=== PATIENT | male | born 1990 | race Caucasian/White ===

== ENCOUNTER 2017-09-04 10:12 | Emergency (ER) | payer BC ==
--- NOTE | 2017-09-04 10:42 | EDM.PDOC ---
ED HPI GENERAL MEDICAL PROBLEM - General Chief Complaint: Lower Extremity Injury/Pain Stated Complaint: LEG RED AND SWOLLEN Time Seen by Provider: 09/04/17 10:25 Source of Information: Reports: Patient History Limitations: Reports: No Limitations - History of Present Illness INITIAL COMMENTS - FREE TEXT/NARRATIVE: The patient presents with a right leg infection. He was swimming at [facility] last week and got an abrasion to the right calf. He has some erythema around the wound that has a scab. He has some pain around it. He has no drainage at this time. He was using hydrogen peroxide and bacitracin to clean it. He denies fever or chills. His tetanus is up to date. Onset: Sudden Duration: Week(s): Location: Reports: Lower Extremity, Right Quality: Reports: Sharp Severity: Moderate Improves with: Reports: None Worsens with: Reports: None Context: Reports: Activity (He was swimming in [facility] when this happened ) Right Lower Leg Pain Score (Numeric/FACES): 2 - Related Data Home Meds: Home Meds Multivitamin [Multivitamins] 1 cap PO DAILY 09/04/17 [History] Sulfamethoxazole/Trimethoprim [Bactrim Ds Tablet] 1 each PO BID #20 tablet 09/04 [Rx] Review of Systems - Review of Systems Review Of Systems: See Below Constitutional: Reports: No Symptoms Eyes: Reports: No Symptoms Ears: Reports: No Symptoms Nose: Reports: No Symptoms Mouth/Throat: Reports: No Symptoms Respiratory: Reports: No Symptoms Cardiovascular: Reports: No Symptoms GI/Abdominal: Reports: No Symptoms Musculoskeletal: Reports: Other (Abrasion and erythema) ED EXAM, GENERAL - Physical Exam Exam: See Below Exam Limited By: No Limitations General Appearance: Alert, No Apparent Distress Ears: Normal External Exam Nose: Normal Inspection Head: Atraumatic Respiratory/Chest: No Respiratory Distress Extremities: Other (area to the right calf with a scab and erythema around it with pain upon palpation. No discharge noted.) Course - Vital Signs Last Recorded V/S: Last Vital Signs Temp 98.7 F 09/04/17 10:24 Pulse 76 09/04/17 10:24 Resp 16 09/04/17 10:24 BP 139/82 09/04/17 10:24 Pulse Ox 98 09/04/17 10:24 Departure - Departure Time of Disposition: 10:45 Disposition: Home, Self-Care 01 Condition: Good Clinical Impression: Abrasion of right calf Qualifiers: Encounter type: initial encounter Qualified Code(s): S80.811A - Abrasion, right lower leg, initial encounter Cellulitis Qualifiers: Site of cellulitis: extremity Site of cellulitis of extremity: lower extremity Laterality: right Qualified Code(s): L03.115 - Cellulitis of right lower limb - Discharge Information Prescriptions: Sulfamethoxazole/Trimethoprim [Bactrim Ds Tablet] 1 each PO BID #20 tablet Referrals: PCP,None [Primary Care Provider] - Anayeli Forrester [Physician] - 1 Week Additional Instructions: Take the bactrim 2 times per day for 10 days. Wash the wound with warm soapy water 2 times per day until better. You may also put some neosporin on after. Please return if you are worse or follow up with Dr Forrester in our clinic.
== END 2017-09-04 10:50 | disposition home or self-care (01) ==
LOC: JD.ED 10:12
DX: S80.811A Abrasion, right lower leg, initial encounter (principal); L03.115 Cellulitis of right lower limb; Z79.899 Other long term (current) drug therapy; X58.XXXA Exposure to other specified factors, initial encounter
CPT/HCPCS: 99283